=== PATIENT | male | born 1965 | race Caucasian/White ===

== ENCOUNTER 2022-01-16 09:37 | Emergency (ER) | payer MEDICAID ==
[~2022-01-16] VITALS: Ht 167.6 cm; Wt 79.0 kg
[2022-01-16 09:39] VITALS: BP 163/95
[2022-01-16] MEDS ORDERED: VALA100044 MT (11:55)
[2022-01-16] MEDS ORDERED: IBUP-2028 MT (11:55)
[2022-01-16] MEDS ORDERED: LIDO700A30 TP (11:55)
== END 2022-01-16 12:23 | disposition home or self-care (01) ==
LOC: ER 09:37
DX: B02.9 Zoster without complications (principal)
CPT/HCPCS: 99283